=== PATIENT | male | born 1955 | race Caucasian/White ===

== ENCOUNTER 2024-08-24 03:35 | Emergency (ER) | payer BC, MEDICAID ==
[~2024-08-24] VITALS: Ht 167.6 cm; Wt 89.0 kg
[2024-08-24 03:53] VITALS: TEMP 36.6; O2SAT 99
[2024-08-24] MEDS: HYDROCODONE/ACETAMINOPHEN 10/325MG TABLET PO ONE ×2 (06:11→07:29)
[2024-08-24] MEDS: TETANUS, DIPHTHERIA, PERTUSSIS VAC/PF 0.5ML (>10YR OLD) IM ONE (06:12)
[2024-08-24] MEDS ORDERED: HYDR-4009 MT (07:14)
[2024-08-24 07:51] VITALS: BP 131/90; PULSE 90; RESP 16; O2SAT 95
== END 2024-08-24 07:56 | disposition home or self-care (01) ==
LOC: ER 03:35
DX: M54.50 Low back pain, unspecified (principal); M89.8X8 Other specified disorders of bone, other site; R51.9 Headache, unspecified; I10 Essential (primary) hypertension; Y08.89XA Assault by other specified means, initial encounter; Y93.89 Activity, other specified; Y92.89 Other specified places as the place of occurrence of the external cause; Y99.8 Other external cause status
CPT/HCPCS: 72100; 73000; 90471; 90715; 99285